=== PATIENT | male | born 1965 | race Caucasian/White ===

== ENCOUNTER 2019-04-13 13:30 | Observation (INO) ==
[2019-04-13] MEDS ORDERED: NS 1,000 ML IV PRN (13:49)
--- NOTE | 2019-04-13 13:53 | EKG Report ---
Test Performed on : 04/13/2019 1:35:10 PM Test Reason : Stroke like symptoms Blood Pressure : / mmHG Vent. Rate : 068 BPM Atrial Rate : 068 BPM P-R Int : 110 ms QRS Dur : 088 ms QT Int : 416 ms P-R-T Axes : 010 000 029 degrees QTc Int : 442 ms Sinus rhythm. with sinus arrhythmia. with short [place] Otherwise normal ECG When compared with ECG of 08-SEP-2016 06:26, No significant change was found Unconfirmed Result
[2019-04-13 14:22] LABS: BASO# 0.05 X1000 (0.0-0.2); BASO% 0.4 % (0.0-0.8); EOS# 0.15 X1000 (0.0-0.7); EOS% 1.3 % (0.0-10.0); HEMOGLOBIN 14.1 g/dL (14.0-18.0); IMM GRAN# 0.12 X1000 (0.0-0.04); LYMPH# 3.64 X1000 (1.2-3.4); MCH 29.7 PG (27-31); MCHC 34.4 g/dL (33-37); MCV 86.5 FL (81-99); MONO# 0.64 X1000 (0.11-0.59); MONO% 5.4 % (1.7-9.3); MPV 10.6 FL (7.4-10.4); NEUT# 7.15 X1000 (1.4-6.5); NEUT% 60.9 % (42.2-75.2); PLT 209 X1000 (130-400); RBC 4.74 XMIL (4.7-6.1); RDW 13.7 % (11.5-14.5); WBC 11.75 X1000 (4.8-10.8)
[2019-04-13 14:23] LABS: INR 1.05; PROTIME 13.8 Seconds (11.0-16.0); PTT 25.1 Seconds (22.3-41.8)
[2019-04-13 14:31] LABS: AGAP 12; ALB/GLOB RATIO 1.7; ALKALINE PHOSPHATASE 103 U/L (32-122); BUN 16 mg/dL (8-22); CALCIUM 8.6 mg/dL (8.8-10.2); CHLORIDE 104 mmol/L (98-107); COSMO 285; CREATININE 0.8 mg/dL (0.7-1.2); ESTIMATED GFR > 60; GLUCOSE 140 mg/dL (70-104); GOT 17 U/L (10-34); GPT 20 U/L (10-44); POTASSIUM 4.1 mmol/L (3.5-5.1); SODIUM 141 mmol/L (136-145); TCO2 25 mmol/L (25-35); TOTAL BILIRUBIN 0.44 mg/dL (0.20-1.00); TOTAL PROTEIN 6.4 g/dL (6.3-8.3)
--- NOTE | 2019-04-13 14:39 | Diag Imaging Result Doc PS360 ---
EXAM: CHEST-PORTABLE 04/13/2019 HISTORY: stroke like symptoms TECHNIQUE: AP portable at 1429 COMMENT: There is no evidence of acute cardiac or pulmonary disease and there are no previous studies available for comparison. IMPRESSION: No acute disease. Electronically signed by Avery Huerta 04/13/2019 2:37 PM
--- NOTE | 2019-04-13 14:48 | Diag Imaging Result Doc PS360 ---
EXAM: CT HEAD W/O CONTRAST INDICATION: stroke like symptoms TECHNIQUE: This exam was performed using automated exposure control, adjustment of mA or kV according to patient size, and/or use of iterative reconstruction technique. COMPARISON: None. FINDINGS: There is no definite acute infarct given the limited sensitivity of CT versus MRI. There is no discrete intracranial mass, mass effect, or intracranial hemorrhage. The surrounding soft tissues and bony structures are essentially unremarkable. IMPRESSION: No evidence of acute intracranial pathology. Electronically signed by Lazaro Su 04/13/2019 2:46 PM
[2019-04-13] MEDS ORDERED: ASPIRIN PO ONE (14:50)
--- NOTE | 2019-04-13 15:04 | PROVIDER DOCUMENTATION ---
This chart was entered by Mariama Kitchen Scribe, acting as scribe for Nathaniel Bustillos MD. HPI-Neurological Disorder - General Chief Complaint: Stroke-Like Symptoms Stated Complaint: CHEST PAIN Time Seen by Provider: 04/13/19 13:45 Source: patient, family, EMS ([facility]) Allergies/Adverse Reactions: Patient Allergies Allergy/AdvReac Type Severity Reaction Status Date / Time No Known Allergies Allergy Verified 04/13/19 13:57 Home Medications: Home Medication List Medication Instructions Recorded Confirmed Last Taken Type Alprazolam [Xanax] 0.5 mg PO BID PRN PRN 03/20/13 04/07/19 04/11/19 08:00 History Sertraline [Zoloft] 50 mg PO DAILY 03/20/13 04/07/19 04/10/19 History Aspirin 81 mg PO DAILY 09/08/16 04/07/19 04/03/19 History Atorvastatin Calcium [Lipitor] 80 mg PO DAILY 09/08/16 04/07/19 04/10/19 History Losartan [Cozaar] 50 mg PO DAILY 09/08/16 04/11/19 04/10/19 History Nebivolol HCl [Bystolic] 10 mg PO BID 09/08/16 04/07/19 04/11/19 08:00 History Omeprazole [Prilosec] 20 mg PO DAILY@0700 04/07/19 04/07/19 04/11/19 08:00 History Triamterene/Hydrochlorothiazid 1 ea PO DAILY 04/07/19 04/07/19 04/10/19 History [Triamterene-Hctz 37.5-25 mg Cp] - History of Present Illness-Neuro Nature of Presenting Problem: 53 yowm presents to the ed via ems for acute onset of rt sided facial droop and decreased sensation to rt face. pt had mild slurring of speech per ems. pt was having lunch with his daughter at a local [employer] restaurant. pt has sudden onset of sx and then while in the ambulance to the hospital pt had onset of chest pain. pt on exam still presents with chest discomfort but CVA sx have resolved pt denies VÁZQUEZ Severity: reports: moderate Onset/Duration: reports: just prior to arrival Timing: reports: improving Context: reports: impaired speech, paresthesia, facial droop Character of Altered Mental Status: reports: N/A Any recent trauma/injury?: reports: none Character of Deficits: reports: altered sensation, impaired speech New weakness or altered sensation location:: reports: right facial, general (diffuse) Cognitive Baseline: alert, oriented x3 Gait Baseline: walks without assistance Associated Symptoms: reports: dizziness, chest pain, paresthesia, slurred speech , weakness. denies: short of breath, headache, fever/chills, nausea, seizures, vomiting, vision changes Similar Symptoms Previously?: No Recently seen or treated by another doctor?: No Review of Systems - Adult - REVIEW OF SYSTEMS - ADULT Constitutional: denies: chills, fever Eyes: denies: blurred vision, double vision Ears, Nose, Mouth & Throat: reports: no symptoms reported Cardiovascular: reports: see HPI, chest pain. denies: palpitations, syncope Respiratory: reports: no symptoms reported Gastrointestinal: denies: diarrhea, nausea, vomiting Genitourinary: reports: no symptoms reported Musculoskeletal: reports: other (generalized weakness). denies: back pain, neck pain Integumentary: reports: no symptoms reported Neurological: reports: see HPI, dizziness/vertigo, paresthesia, slurred speech. denies: headache/migraines, syncope, tremors Psychiatric: reports: no symptoms reported Endocrine: reports: no symptoms reported Hematologic/Lymphatic: reports: no symptoms reported Allergic/Immunologic: reports: no symptoms reported All Other Systems: Reviewed and Negative Past History - Adult - PAST MEDICAL HISTORY-ADULT Review of Records: reports: Old Records Reviewed, Nursing Assessment Review, Medications Reviewed, Social history reviewed & non-contributory. Major Childhood Illnesses: reports: denies history Cardiovascular: reports: HTN, hyperlipidemia Respiratory: reports: sleep apnea Gastrointestinal: reports: denies history Genitourinary: reports: denies history Musculoskeletal: reports: denies history Neurological: reports: denies history Psychiatric: reports: anxiety Endocrine/Immune: reports: denies history Other Conditions: reports: denies history - PRIOR SURGERIES/PROCEDURES Surgical/Procedure History: reports: back/neck, other (hemorrhoid sx) - IMMUNIZATION STATUS Childhood Immunizations: See Nurse Assessment Flu Vaccine: See Nurse Assessment - FAMILY HISTORY Family History: reviewed, not pertinent - SOCIAL HISTORY Smoking: quit greater than 1 year Substance Use: denies Alcohol Use Frequency: never Living Situation: family Physical Exam- Neurological - Physical Exam-Neuro Initial Vital Signs Reviewed: Yes General Appearance: appears well, alert, no apparent distress (sx have resolved except still has mild chest pain), obese Eye Exam: bilateral eye: normal inspection, PERRL, EOMI HENMT: normocephalic/atraumatic, moist mucous membranes, normal ENT inspection Head Injury: no evidence of injury Neck: non-tender, full range of motion, supple, normal inspection Respiratory: chest non-tender, lungs clear, normal breath sounds Cardiovascular: normal peripheral pulses, regular rate, rhythm, other (c/o mild chest pain onset while in the ambulance) Abdominal Exam: normal bowel sounds, non tender, soft Lymphatic: no adenopathy Extremity: normal range of motion, non-tender, normal inspection, normal capillary refill spring encaser Exam: normal hearing, normal speech, PERRL. negative: abnormal speech, facial droop, facial paresthesias, facial weakness Coordination/Gait: normal finger to nose Motor/Sensory: no motor deficit, no sensory deficit, no pronator drift Neurologic: spring encaser II-XII nml as tested, grossly normal, no motor/sensory deficits Integumentary: normal color, normal turgor, warm/dry Psych/Mental Status: normal mood/affect, normal thought content, normal thought process, oriented x 3 - Glascow Coma Scale Best Eye Response: (4) open spontaneously Best Verbal Response: (5) oriented Best Motor Response: (6) obeys commands Total Glascow Score: 15 Progress - PLAN OF CARE/RESULTS Progress/Plan/Lab Results: Vital Signs - 8 hr 04/13/19 13:38 04/13/19 13:39 04/13/19 13:40 Temperature Pulse Rate 71 69 77 Respiratory Rate 19 15 22 Blood Pressure 145/88 O2 Sat by Pulse Oximetry 97 97 92 L 04/13/19 13:50 04/13/19 13:52 04/13/19 14:00 Temperature 98.2 F Pulse Rate 75 73 68 Respiratory Rate 18 18 14 Blood Pressure 145/88 O2 Sat by Pulse Oximetry 93 L 90 L 92 L 04/13/19 14:10 04/13/19 14:33 04/13/19 14:35 Temperature Pulse Rate 83 68 70 Respiratory Rate 19 20 17 Blood Pressure 114/65 O2 Sat by Pulse Oximetry 90 L 94 L 92 L 04/13/19 14:40 04/13/19 14:41 04/13/19 14:50 Temperature Pulse Rate 69 65 70 Respiratory Rate 19 15 18 Blood Pressure 114/65 O2 Sat by Pulse Oximetry 94 L 93 L 92 L Laboratory Results - last 24 hr 04/13/19 04/13/19 04/13/19 13:43 13:43 13:43 WBC 11.75 H RBC 4.74 Hgb 14.1 Hct 41.0 L MCV 86.5 MCH 29.7 MCHC 34.4 RDW Std Deviation 13.7 Plt Count 209 MPV 10.6 H Immature Gran % (Auto) 1.0 H Neut % (Auto) 60.9 Lymph % (Auto) 31.0 [place] % (Auto) 5.4 Eos % (Auto) 1.3 Baso % (Auto) 0.4 Immature Gran # (Auto) 0.12 H Neut # (Auto) 7.15 H Lymph # (Auto) 3.64 H [place] # (Auto) 0.64 H Eos # (Auto) 0.15 Baso # (Auto) 0.05 PT INR PTT (Actin FS) Sodium 141 Potassium 4.1 Chloride 104 Carbon Dioxide 25 Anion Gap 12 BUN 16 Creatinine 0.8 Estimated GFR/1.73 m2 > 60 BUN/Creatinine Ratio 20 Glucose 140 H POC Glucose Calculated Osmolality 285 Calcium 8.6 L Magnesium 2.0 Total Bilirubin 0.44 AST 17 ALT 20 Alkaline Phosphatase 103 Troponin T Total Protein 6.4 Albumin 4.0 Globulin 2.4 Albumin/Globulin Ratio 1.7 Plasma/Serum Ethyl Alc 04/13/19 04/13/19 04/13/19 13:43 13:43 13:43 WBC RBC Hgb Hct MCV MCH MCHC RDW Std Deviation Plt Count MPV Immature Gran % (Auto) Neut % (Auto) Lymph % (Auto) [place] % (Auto) Eos % (Auto) Baso % (Auto) Immature Gran # (Auto) Neut # (Auto) Lymph # (Auto) [place] # (Auto) Eos # (Auto) Baso # (Auto) PT 13.8 INR 1.05 PTT (Actin FS) 25.1 Sodium Potassium Chloride Carbon Dioxide Anion Gap BUN Creatinine Estimated GFR/1.73 m2 BUN/Creatinine Ratio Glucose POC Glucose Calculated Osmolality Calcium Magnesium Total Bilirubin AST ALT Alkaline Phosphatase Troponin T < 0.010 Total Protein Albumin Globulin Albumin/Globulin Ratio Plasma/Serum Ethyl Alc 04/13/19 14:00 WBC RBC Hgb Hct MCV MCH MCHC RDW Std Deviation Plt Count MPV Immature Gran % (Auto) Neut % (Auto) Lymph % (Auto) [place] % (Auto) Eos % (Auto) Baso % (Auto) Immature Gran # (Auto) Neut # (Auto) Lymph # (Auto) [place] # (Auto) Eos # (Auto) Baso # (Auto) PT INR PTT (Actin FS) Sodium Potassium Chloride Carbon Dioxide Anion Gap BUN Creatinine Estimated GFR/1.73 m2 BUN/Creatinine Ratio Glucose POC Glucose 129 H Calculated Osmolality Calcium Magnesium Total Bilirubin AST ALT Alkaline Phosphatase Troponin T Total Protein Albumin Globulin Albumin/Globulin Ratio Plasma/Serum Ethyl Alc Orders Category Date Time Status Cardiac Monitoring DIRECTED Care 04/13/19 13:49 Active Finger Stick Blood Sugar (ED) DIRECTED Care 04/13/19 13:49 Completed Misc. NRSG Communication Order DIRECTED Care 04/13/19 13:49 Active Saline Loc NOW Care 04/13/19 13:49 Active CHEST-PORTABLE [RAD] Stat Exams 04/13/19 13:[address] HEAD W/O CONTRAST [CT] Stat Exams 04/13/19 13:49 Completed ALCOHOL BLOOD Stat Lab 04/13/19 13:43 Completed CBC WITH ELECTRONIC DIFF [HEME] Stat Lab 04/13/19 13:43 Completed COMPREHENSIVE METABOLIC PANEL [CHEM] Stat Lab 04/13/19 13:43 Completed MAGNESIUM [CHEM] Stat Lab 04/13/19 13:43 Completed PROTIME WITH INR [COAG] Stat Lab 04/13/19 13:43 Completed PTT [COAG] Stat Lab 04/13/19 13:43 Completed TROPONIN T Stat Lab 04/13/19 13:43 Completed URINALYSIS W/POSS RFLX CULT [URINALYSIS] Stat Lab 04/13/19 13:56 Ordered URINE DRUG SCREEN Stat Lab 04/13/19 13:56 Ordered 0.9% Sodium Chloride Inj [Ns] 1,000 ml Med 04/13/19 13:49 Active IV 125 mls/hr Aspirin Med 04/13/19 14:50 Discontinued 325 mg PO NOW ONE EKG [EKG] Stat Ther 04/13/19 13:49 Draft N TPA given due to resolve of neuro sx [employer] Result Diagrams: 04/13/19 13:43 04/13/19 13:43 - REASSESSMENT Reassessment #1 Time Reassessed: 14:06 Status: improving - EKG 1 Time of EKG reading by physician:: 13:35 EKG Read and Signed by:: Nathaniel Bustillos EKG Interpretation (*Must complete 3 of following elements*): Normal Rate: 68 Rhythm: sinsu rhythm with sinus arrhythmia with short pr [place]: normal QRS: normal CT Interval: normal ST Wave: normal - XRAY 1 XRAY: Bilateral XRAY Study: Chest Impression: See EMR Report ( EXAM: CHEST-PORTABLE 04/13/2019 HISTORY: stroke like symptoms TECHNIQUE: AP portable at 1429 COMMENT: There is no evidence of acute cardiac or pulmonary disease and there are no previous studies available for comparison. IMPRESSION: No acute disease. Electronically signed by Avery Huerta 04/13/2019 2:37 PM 04/13/19 1437 Interpreting Physician: Avery Huerta MD Dictated Date/Time: 04/13/19 1436 cc: Nathaniel Bustillos MD; Jose Elias Mccormack) - CT/MRI 1 CT Study: Head Impression: See EMR Report (EXAM: CT HEAD W/O CONTRAST INDICATION: stroke like symptoms TECHNIQUE: This exam was performed using automated exposure control, adjustment of mA or kV according to patient size, and/or use of iterative reconstruction technique. COMPARISON: None. FINDINGS: There is no definite acute infarct given the limited sensitivity of CT versus MRI. There is no discrete intracranial mass, mass effect, or intracranial hemorrhage. The surrounding soft tissues and bony structures are essentially unremarkable. IMPRESSION: No evidence of acute intracranial pathology. Electronically sig tia by Lazaro Su 04/13/2019 2:46 PM 04/13/19 1446 Interpreting Physician: Lazaro Su MD Dictated Date/Time: 04/13/19 1444 cc: Nathaniel Bustillos MD; Jose Elias Mccormack) - CONSULTS/PCP/HOSPITALIST Notification #1 *Consult/PCP/Hospitalist*: hospitalist dr gunderson Time Discussed: 15:03 Consult Disposition: Admit Departure - Departure Date of Disposition Decision: 04/13/19 Time of Disposition Decision: 14:54 DIAGNOSIS: TIA (transient ischemic attack) Chest pain Qualifiers: Chest pain type: unspecified Qualified Code(s): R07.9 - Chest pain, unspecified Disposition: ADMITTED INPATIENT 09 Certified Medical Emergency: Emergent Condition: Stable Referrals and Follow-Ups: Jose Elias Mccormack [Primary Care Provider] - - Critical Care Note This patient required my direct & personal management of CC.: Yes Total Time (mins): 34 Critical Care Statement: This patient required my direct personal management to treat or rule out processes, the absence of which, could potentiallly result in sudden, clinically significant life or limb threatening deterioration. Attestation - Physician/ CAIT Attestation Patient care was provided by Advanced Practice Provider:: No The physician spent face to face time with patient:: Yes Advanced Practice Provider documentation review:: Supervising physician onsite a nd consulted in the evaluation and care of this patient. The physician did have a face to face encounter with the patient. - NIH Stroke Scale NIH Type: Initial Evaluation Level of Consciousness: 0-Alert LOC Questions (ask month and age): 0-Answers Both Correctly LOC Commands (ask to open & close eyes;make a fist, let go): 0-Obeys Both Correctly Best Gaze (horizontal eye movement): 0-Normal Visual (use finger movement, counting or visual threat): 0-No Visual Loss Facial Palsy (show teeth or raise eyebrows & close eyes tght: 0-Symmetrical Movement Motor Function-left arm: 0-Normal Motor Function-right arm: 0-Normal Motor Function-left le-Normal Motor Function-right le-Normal Limb Ataxia(xziksk-aoec-uwavou, or heel to meyers): 0-No Ataxia Sensory(pin prick to face,arms,trunk,legs-compare side/side): 0-No Ataxia Best Language(name item/read sentence.Ex-Down to Earth): 0-No Aphasia Dysarthria(Pt read words or say words Ex.Mama,Tip-Top,Thanks: 0-Normal Articulation Extinction and Inattention: 0-Normal NIH Total Score: 0 This chart was documented by the indicated scribe, (Mariama Kitchen Scribe) and accurately reflects the services I performed and decisions made by me, Nathaniel Bustillos MD, as attested by the provider's signature.
[2019-04-13 16:31] LABS: URINE SOURCE CLEAN CATCH
[2019-04-13 16:46] LABS: BILIRUBIN URINE NEGATIVE (NEGATIVE); BLOOD URINE NEGATIVE (NEGATIVE); COLOR YELLOW; GLUCOSE URINE NEGATIVE (NEGATIVE); KETONE URINE NEGATIVE (NEGATIVE); LEUKOCYTES URINE NEGATIVE (NEGATIVE); NITRITE URINE NEGATIVE (NEGATIVE); PH URINE 7.5; PROTEIN URINE TRACE mg/dL (NEGATIVE); SP GRAVITY URINE 1.029; TURBIDITY URINE CLEAR (CLEAR); UROBILINOGEN URINE 2 mg/dL (NORMAL)
[2019-04-13 16:47] LABS: UR EPITHELIAL CELLS <10 /HPF (<10); URINE BACTERIA NEGATIVE /HPF; URINE RBC <10 /HPF (<10); URINE WBC <10 /HPF (<10)
[2019-04-13] MEDS ORDERED: ZOFRAN IV PRN (17:00)
[2019-04-13] MEDS ORDERED: NORCO-7.5 PO PRN (17:00)
[2019-04-13] MEDS ORDERED: XANAX PO PRN (17:00)
[2019-04-13] MEDS ORDERED: TYLENOL PO PRN (17:00)
[2019-04-13 17:29] LABS: UR AMPHETAMINES QUAL NONE DETECTED (NONE DETECT); UR BARBITUATES QUAL NONE DETECTED (NONE DETECT); UR BENZODIAZEPIN QUAL PRESUMPTIVE POSITIVE (NONE DETECT); UR CANNABINOIDS QUAL NONE DETECTED (NONE DETECT); UR COCAINE QUAL NONE DETECTED (NONE DETECT); UR METHADONE QUAL NONE DETECTED (NONE DETECT); UR OPIATES QUAL PRESUMPTIVE POSITIVE (NONE DETECT); UR OXYCODONE QUAL NONE DETECTED (NONE DETECT); UR PCP QUAL NONE DETECTED (NONE DETECT)
--- NOTE | 2019-04-13 18:52 | HISTORY AND PHYSICAL ---
PRIMARY CARE PHYSICIAN: Dr. Jose Elias Mccormack. CHIEF COMPLAINT: Increased confusion, slurred speech, and right facial drooping while eating lunch at a [place] restaurant with his daughter. That has all resolved. He also felt some left- sided chest pain. HISTORY OF PRESENTING ILLNESS: This is a 53-year-old male who presents to [facility] via EMS after he was with his daughter at a [place] restaurant today, and was noted to have some increased confusion, mild slurring of speech, some facial drooping, and decreased sensation to the right side of his face that have all resolved on arrival to the emergency room. He also states he had a little chest pain on the left side that was nonradiating. His workup showed a chest x-ray with no acute disease. Head CT with no evidence of acute intracranial pathology, and an EKG that showed sinus rhythm with sinus arrhythmia with short AL at 68. Is noted to have had a carpal tunnel surgery done to his left hand on Thursday with no problems identified with that at this time, but he will be admitted for observation for further evaluation and treatment. PAST MEDICAL HISTORY: 1. Hypertension. 2. Hyperlipidemia. 3. Sleep apnea. 4. Anxiety. PAST SURGICAL HISTORY: 1. Back and neck surgery. 2. Hemorrhoidectomy. 3. Carpal tunnel repair to his left wrist on Thursday. 4. Appendectomy. FAMILY HISTORY: Reviewed and noncontributory. SOCIAL: He currently lives with family. Is a former smoker. Denied any alcohol or illicit drug use. ALLERGIES: He has no known drug allergies. HOME MEDICATIONS: 1. Xanax 0.5 mg p.o. b.i.d. p.r.n. 2. Aspirin 81 mg p.o. daily. 3. Lipitor 80 mg p.o. at bedtime. 4. [place] 7.5 one p.o. q.4 to 6 hours p.r.n. 5. Cozaar 50 mg p.o. b.i.d. 6. Bystolic 10 mg p.o. b.i.d. 7. Prilosec 20 mg p.o. daily. 8. Sertraline 50 mg p.o. at bedtime. 9. Triamterene/hydrochlorothiazide 37.5/25 one p.o. daily. LABORATORY DATA: Showed a white blood cell count of 11.75, hemoglobin 14.1, hematocrit 41.0, platelets 209,000. PT and INR of 13.8 and 1.05. Sodium 141, potassium 4.1, chloride 104, CO2 25, BUN of 16, creatinine 0.8, glucose 140, magnesium of 2. Troponin was less than 0.010. Serum alcohol level showed none detected. Chest x-ray showed no acute disease. EKG showed sinus rhythm with sinus arrhythmia with short AL at 68. Head CT showed no evidence of acute intracranial pathology. REVIEW OF SYSTEMS: He denied any fever, chills, blurred vision. He had some dizziness, confusion, some mild slurred speech, and a right-sided facial droop, and felt some numbness in the right cheek, and he had some chest pain. Denied any shortness of breath, cough, abdominal pain, constipation, diarrhea, burning or hurting with urination. PHYSICAL EXAMINATION: VITAL SIGNS: On arrival, he had a pulse of 71, respirations 19, blood pressure 145/88, saturating 97% on room air. GENERAL: This is a 53-year-old male who is lying in the bed. Answers questions appropriately. HEENT: Normocephalic, atraumatic. Normal ENT inspection. Oropharynx and nares are clear. Eyes: Pupils are equal, round, and reactive to light and accommodation. Extraocular movements are intact. NECK: Normal inspection. Normal range of motion. LUNGS: Clear to auscultation bilaterally with equal lung expansion and chest wall movement. HEART: Regular rate and rhythm. No murmurs, rubs, or gallops. ABDOMEN: Soft, nontender, nondistended. Bowel sounds are present x4 quadrants. MUSCULOSKELETAL: He had 5/5 strength x4 extremities. NEUROLOGICAL: The cranial nerves 2 through 12 were grossly intact and all symptoms have resolved. ASSESSMENT: 1. Transient ischemic attack. 2. Chest pain. 3. Hypertension. 4. Anxiety. 5. Hyperlipidemia. PLAN: 1. He is being admitted to the medical unit, placed on telemetry. 2. We are going to check an MRI of the brain with and without contrast. 3. Carotid ultrasound. 4. Place on a healthy heart diet. 5. Continue home medications as previously identified. 6. Normal saline at 125 mL an hour. 7. Recheck a CBC and BMP in the a.m. 8. Further orders after seen by Attending. Dictated by JHONNY Sawyer for Mik Huston MD cc: JHONNY Sawyer MD agree with above. the following is my own face to face assessment. possible TIA but symptoms sound more like a pre-syncopal event. patient had subjective facial asymmetry but family and EMS that were present did not see any objective facial droop or other focal sign. neurologically intact on exam. will check troponins and thyroid studies in addition to TIA workup. monitor on telemetry. patient did have anesthesia <24 hours prior to this event and reports that he has had issues with drops in BP post-anesthesia in the past which could be the cause but may need heart monitor in the future if other workup is unremarkable and he has another event. PREET
[2019-04-13] MEDS ORDERED: ZOLOFT PO SCH (21:00)
[2019-04-13] MEDS ORDERED: LIPITOR PO SCH (21:00)
[2019-04-13] MEDS: COZAAR PO SCH (22:46)
[2019-04-13] MEDS: BYSTOLIC PO SCH (22:47)
[2019-04-14] MEDS ORDERED: PRILOSEC PO SCH (07:00)
[2019-04-14 08:47] LABS: BASO# 0.05 X1000 (0.0-0.2); BASO% 0.5 % (0.0-0.8); EOS# 0.28 X1000 (0.0-0.7); EOS% 2.9 % (0.0-10.0); HEMOGLOBIN 14.1 g/dL (14.0-18.0); LYMPH# 2.68 X1000 (1.2-3.4); LYMPH% 27.5 % (20.5-51.1); MCH 29.2 PG (27-31); MCHC 33.6 g/dL (33-37); MONO# 0.68 X1000 (0.11-0.59); MPV 10.6 FL (7.4-10.4); NEUT# 5.96 X1000 (1.4-6.5); NEUT% 61.1 % (42.2-75.2); PLT 201 X1000 (130-400); RBC 4.83 XMIL (4.7-6.1); RDW 13.8 % (11.5-14.5); WBC 9.75 X1000 (4.8-10.8)
[2019-04-14] MEDS ORDERED: ASPIRIN PO SCH (09:00)
[2019-04-14] MEDS ORDERED: DYAZIDE PO SCH (09:00)
[2019-04-14 09:20] LABS: AGAP 10; BUN 15 mg/dL (8-22); CALCIUM 8.6 mg/dL (8.8-10.2); CHLORIDE 103 mmol/L (98-107); COSMO 281; CREATININE 0.7 mg/dL (0.7-1.2); ESTIMATED GFR > 60; GLUCOSE 107 mg/dL (70-104); POTASSIUM 4.1 mmol/L (3.5-5.1); SODIUM 140 mmol/L (136-145); TCO2 27 mmol/L (25-35)
[2019-04-14] MEDS: BYSTOLIC PO SCH (09:42)
[2019-04-14] MEDS: COZAAR PO SCH (09:42)
[2019-04-14 10:25] LABS: FREE T4 1.2 ng/dL (0.93-1.70); TSH 1.88 uIUmL (0.27-4.20)
--- NOTE | 2019-04-14 11:30 | Diag Imaging Result Doc PS360 ---
EXAM: MRI BRAIN W/WO CONTRAST HISTORY: TIA TECHNIQUE: MRI brain with and without contrast. Axial, sagittal, and coronal images obtained in multiple sequences. These are followed by post contrasted axial and coronal images. COMPARISON: Recent head CT and MRI from 10/13/2013 FINDINGS: No recent infarct. No mass or midline shift. No enhancing lesion on contrasted images. No hydrocephalus. No epidural or subdural fluid collection. Normal orbits. No sinus opacification. IMPRESSION: No recent infarct and no significant microvascular ischemic changes. Electronically signed by Vargas Phelan 04/14/2019 11:28 AM
[2019-04-14 11:56] VITALS: BP 133/90
--- NOTE | 2019-04-16 13:23 | Carotid Study ---
DATE: 04/13/2019 REQUESTING PROVIDER: Brittni. MANPOWER DEVELOPMENT ADVISOR: Dennise. INDICATIONS: TIA with right facial numbness and slurred speech. EQUIPMENT: [employer] Vivid E9 ultrasound system a 9L-D transducer. FINDINGS: Complete diagram of ultrasound images can be seen in the patient's medical record. The peak systolic velocity on the right side is located in the proximal internal at 71. The peak systolic velocity on the left side is located also in the internal proximal system and is 107. The calculated internal to common ratio on the right is 0.74, on the left 1.23. Calculated stenosis on the right 0 to 39 percent, left 0 to 39 percent. There appears to be some atherosclerosis but this does not produce a hemodynamically significant flow-limiting stenosis. Both vertebral arteries were antegrade flow. INTERPRETATION: By strict velocity criteria, no hemodynamically significant flow-limiting stenosis. cc: MD Maeve Tuttle CRNP
--- NOTE | 2019-04-19 13:14 | DISCHARGE SUMMARY ---
ADMISSION DATE: 04/13/2019 DISCHARGE DATE: 04/14/2019 PERTINENT STUDIES: MRI brain unremarkable. Carotid Dopplers without any flow-limiting stenosis. Troponins negative x2. Thyroid studies within normal limits. White count 9.75. Basic metabolic panel unremarkable. Chest x-ray and CT with no acute process. DISCHARGE DIAGNOSES: 1. Presyncope. 2. Possible transient ischemic attack. 3. Hypertension. 4. Gastroesophageal reflux disease. 5. Obstructive sleep apnea. 6. Anxiety. HOSPITAL COURSE: The patient presented initially with reports of some confusion and subjective right facial droop while out at a restaurant with his family. The patient had had a carpal tunnel surgery the prior afternoon. Did well initially but was out at dinner and began having subjective feeling of his right face being asymmetric. According to his family who was sitting there with him, they could not detect any facial asymmetry. Similarly with EMS, he had feelings of right facial droop but they could not identify any objectively. The family did note some mild confusion and pallor and possibly diaphoresis, which all resolved. He was admitted for TIA versus presyncope workup. Cardiac workup was unremarkable as was TIA workup. On further discussion with patient, he states that he has had odd and delayed reactions to anesthesia in the past including hypotension and syncope. Also, he had just started back all of his home blood pressure medications earlier that day, which is a fairly significant regimen. Suspect that between the anesthesia within the last 24 hours and then starting back all of his home blood pressure medications, he had transient orthostatic hypotension resulting in some brief confusion, which all resolved. DISCHARGE VITAL SIGNS: Temperature 98.2, pulse 58, respirations 24, blood pressure 133/90, O2 saturation 98% on room air. DISCHARGE DIET: Low salt. DISCHARGE MEDICATIONS: Atorvastatin 80 mg p.o. at bedtime, Zoloft 50 mg p.o. at bedtime, aspirin 81 mg p.o. daily, nebivolol 10 mg p.o. b.i.d., losartan 50 mg p.o. b.i.d., [place] 7.5 as previously prescribed, omeprazole 20 mg p.o. daily, triamterene/HCTZ 37.5/25 daily, Xanax 0.5 mg b.i.d. p.r.n. FOLLOWUP AND PLAN: The patient is discharging home to follow up with his PCP. If symptoms reoccur, then may need longer term senior storage administrator, i.e. Holter. Greater than 30 minutes was spent arranging discharge and counseling the patient.
== END 2019-04-14 15:54 | disposition home or self-care (01) ==
LOC: SUPCPDRO → EDIPHOLD 13:30 → ED 13:30 → 3N 18:54 → 1N 22:01
PROVIDERS: ATTEND Internal Medicine